=== PATIENT | male | born 1985 | race Caucasian/White ===

== ENCOUNTER 2019-08-05 13:41 | Outpatient (CLI) | payer BC ==
--- NOTE | 2019-08-05 14:13 | ULT ---
Scrotal sonogram with duplex evaluation HISTORY: Left scrotal mass. FINDINGS: Right testicle is 5.1 cm length and left is 4.7 cm. Each has a normal sonographic appearanc e with good color and spectral Doppler flow. In the area of palpable concern, a left epididymal cyst is 0.6 cm greatest diameter. Also within the left side of the scrotum, distended vascular structures are present that become more engorged upon Valsalva maneuver. IMPRESSION : No evidence of testicular mass or torsion. Small left epididymal cyst accounts for the palpable lesion. Fairly prominent left varicocele.
== END 2019-08-05 13:42 | disposition home or self-care (01) ==
LOC: BICULT 13:41
PROVIDERS: ATTEND Family Medicine
DX: N50.89 Other specified disorders of the male genital organs (principal); N50.3 Cyst of epididymis; I86.1 Scrotal varices
CPT/HCPCS: 76870; 93976

== ENCOUNTER 2022-07-29 09:47 | Emergency (ER) | payer BC ==
[2022-07-29] MEDS ORDERED: Cyclobenzaprine 10 MG TAB ONE (10:31)
[2022-07-29] MEDS ORDERED: Ketorolac Tromethamine 30 MG/ML VIAL ONE (10:31)
[2022-07-29] MEDS ORDERED: predniSONE 20 MG TAB ONE (10:31)
[2022-07-29] MEDS ORDERED: LORazepam 2 MG/ML SYR.(CARPUJECT) ONE (12:07)
== END 2022-07-29 17:28 | disposition home or self-care (01) ==
LOC: ERS 09:47
DX: R53.1 Weakness (principal); M54.50 Low back pain, unspecified; F17.220 Nicotine dependence, chewing tobacco, uncomplicated
CPT/HCPCS: 36415; 72131; 72148; 85652; 93923; 96372; 96374; J1885; J2060; J7512

== ENCOUNTER 2022-07-30 09:33 | Emergency (ER) | payer BC | END 2022-07-30 10:36 | disposition home or self-care (01) | LOC: ERS 09:33 | DX: M54.50 Low back pain, unspecified (principal); R53.1 Weakness; F17.220 Nicotine dependence, chewing tobacco, uncomplicated | CPT/HCPCS: 99283 ==